=== PATIENT | female | born 1960 | race African-American/Black ===

== ENCOUNTER → 2018-03-05 | Outpatient (CLI) | payer BC, OTHER ==
[~2018-03-05] VITALS: Ht 170.2 cm; Wt 81.6 kg
[~2018-03-05] MED LIST: CELEXA40 MG PO; FLEXERIL PO; LISINOPRIL10 MG PO; VOLTAREN GEL 1100 G2 TOP; XANAX1 MG PO
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
[2018-03-05 08:34] VITALS: BP 132/93
== END ==
LOC: PAIN 07:52
DX: M54.12 Radiculopathy, cervical region (principal); M79.1 Myalgia

== ENCOUNTER → 2018-04-04 | Outpatient (CLI) | payer BC, OTHER ==
[~2018-04-04] VITALS: Ht 170.2 cm; Wt 96.6 kg
--- NOTE | ~2018-04-04 | HPC ---
[facility] [place] [address] PAIN MANAGEMENT CONSULTATION Name: JEET HAND Room #: REG KWAME Richard#: [id number] Admission: 04/04/18 Attend Phys: Epi Hair DO Discharge: Date of : 62 Report #: [id number] THIS REPORT FOR: //name// CC: Dr. Ozzy Krishnan DATE OF SERVICE: 04/04/2018 REFERRING PHYSICIAN: Dr. Ozzy Marinelli. CHIEF COMPLAINT: Neck pain, left upper extremity pain and paresthesias. HISTORY OF PRESENT ILLNESS: As you know, the patient is a very unfortunate 57-year-old female who was seen in consultation per the request of Dr. Ozzy Marinelli for neck pain, left upper extremity pain and paresthesias. The patient was initially seen by my partner, Dr. Blayne Hair on 03/05/2018. She was established today's appointment to return to undergo epidural injection under fluoroscopic guidance as we required preauthorization before the patient could undergo the procedure. We have successfully completed the preauthorization process. The patient has returned today in followup visit to undergo the first in the series of cervical epidural injections. She places pain score today 10/10. She is denying any changes in her medical history since our last visit. She continues to take dtvg-xba-vwrytkt medications for pain control. She reports a 52/70 pain impact score today. ALLERGIES: No known drug allergies. CURRENT MEDICATIONS: Diclofenac, cyclobenzaprine, alprazolam, citalopram, lisinopril. SOCIAL HISTORY: The patient denies tobacco, alcohol, IV or illicit drug use. She is retired. She is not receiving workmen's compensation. Apparently, she is in litigation in regards to pain and has been advised we will not be involved in any legal action. She is unaccompanied today. IMAGING: No new imaging available. PHYSICAL EXAMINATION: VITAL SIGNS: Blood pressure 144/91, pulse 78, respiratory rate 14 and unlabored. The patient is 98% on room air. Height 5 feet 7 inches tall, weight 213 pounds, BMI calculated 33.4. GENERAL: Well-developed, well-nourished, well-hydrated exogenously obese 57-year-old female appearing stated age, placing current pain score at 8/10. HEENT: Normocephalic, atraumatic. Pupils equal, round, reactive to light. EXTREMITIES: Show no clubbing, no cyanosis, [place] [address] PAIN MANAGEMENT CONSULTATION Name: JEET HAND Room #: REG [facility].#: [id number] Admission: 04/04/18 Attend Phys: Epi Hair DO Discharge: Date of : 62 Report #: [id number] MUSCULOSKELETAL: Upper extremity strength appears symmetrical, though there is some giveaway strength noted with triceps extension. 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 Muscle bulk and tone is symmetrical. There is no atrophy noted. Tinel's negative. Phalen's negative. Cervical provocation testing is met with increased pain. Spurling's test is equivocal. ASSESSMENT: 1. Cervical radiculopathy. 2. Cervical spondylosis with radicular symptoms. 3. Myofascial pain. 4. Chronic intractable pain. PLAN: 1. The patient returns today in followup visit having received precertification to undergo the first in a series of cervical epidural injections. We have spent time today discussing the risks and the benefits of the procedure with the patient. We discussed the following with the patient today. We discussed risks that include bleeding, bruising and infection. We discussed temporary or permanent muscle weakness, temporary or permanent nerve damage, possible paralysis, post-dural puncture, headache and . After reviewing the risks of this procedure, the patient chose to continue with the injection. 2. No medication changes were made at today's visit. The patient will continue current medical therapy as previously prescribed. 3. The patient will return to our clinic in 31 days. At that time, we will review the efficacy of today's cervical epidural injection and determine if next in the series of cervical epidural injections would be recommended. PROCEDURE NOTE DESCRIPTION OF PROCEDURE: C7-T1 cervical epidural steroid injection under fluoroscopic guidance. This is the first procedure of the first series that the patient is undergoing. After obtaining written consent, the patient was taken back to the fluoroscopy suite and placed in a prone position with separate pillows under chest and forehead to decrease cervical lordosis. The skin overlying the cervical area was prepped and draped in an aseptic fashion. The C7-T1 vertebral interspace was identified by AP fluoroscopy. The skin and subcutaneous tissue overlying the target site of injection was anesthetized using 3 mL of 1% lidocaine. A 20-gauge 3-1/2 inch Tuohy needle was advanced under fluoroscopic guidance toward the epidural space using a left paramedian approach. The epidural space was identified using a loss of resistance to air technique. After negative aspiration for heme or cerebrospinal fluid, a total of 0.25 mL of Omnipaque was [address] [address] PAIN MANAGEMENT CONSULTATION Name: JEET HAND Room #: REG KATHARINA Laure#: [id number] Admission: 04/04/18 Attend Phys: Epi Hair DO Discharge: Date of : 62 Report #: [id number] injected. A cervical epidurogram was confirmed using AP and oblique fluoroscopy. After negative aspiration for heme or cerebrospinal fluid, 5 mL of a solution containing 2 mL 40 mg per mL, 80 mg total triamcinolone, 3 mL lidocaine 1% was injected in increments. Contrast spread was noted from posterior epidural space. The needle was then retracted approximately intermediate and the needle track was flushed with 1 mL of 1% lidocaine. There were no apparent new sensory deficits in the upper extremities present following the procedure. A sterile bandage was placed over the injection site. The heart rate, pulse oximetry and blood pressure were continuously monitored after the procedure. There were no apparent complications. The patient tolerated the procedure well and was carefully escorted in the recovery room in stable condition. After meeting discharge criteria, the patient was discharged home. <ELECTRONICALLY SIGNED> By: Epi Hair DO 04/10/18 1441 [id number] 1323 Epi Hair DO /nt
[2018-04-04 08:12] VITALS: BP 144/91
== END | disposition home or self-care (01) ==
LOC: PAIN 06:39
DX: M47.22 Other spondylosis with radiculopathy, cervical region (principal); G89.29 Other chronic pain; M79.1 Myalgia; Z79.899 Other long term (current) drug therapy; Z91.041 Radiographic dye allergy status